=== PATIENT | male | born 2000 | race Caucasian/White ===

== ENCOUNTER 2021-12-19 09:22 | Emergency (ER) | payer OTHER ==
[2021-12-19] MEDS ORDERED: CEFAZOLIN 1 GM VIAL ONE ×2 (10:54)
[2021-12-19] MEDS ORDERED: Boostrix 0.5 ML (Tdap) VIAL (>/=7 yrs of age) ONE (10:54)
[2021-12-19] MEDS ORDERED: Sterile Water 10 ML ONE (10:57)
[2021-12-19] MEDS ORDERED: Lidocaine 1% MPF 2 ML VIAL ONE ×2 (12:07)
== END 2021-12-19 14:05 | disposition home or self-care (01) ==
LOC: EEVIPCON 09:22 → ERS 09:22
DX: S09.90XA Unspecified injury of head, initial encounter (principal); S81.812A Laceration without foreign body, left lower leg, initial encounter; S20.312A Abrasion of left front wall of thorax, initial encounter; Z23 Encounter for immunization; F17.200 Nicotine dependence, unspecified, uncomplicated; Y04.0XXA Assault by unarmed brawl or fight, initial encounter
CPT/HCPCS: 12004; 70450; 70486; 71045; 90471; 90715; 96372; J0690